=== PATIENT | female | born 1980 | race Caucasian/White ===

== ENCOUNTER 2021-03-29 12:09 | Emergency (ER) | payer OTHER ==
[~2021-03-29] VITALS: Ht 167.6 cm; Wt 77.0 kg
[2021-03-29] MEDS ORDERED: MECL-159 MT (21:18)
[2021-03-29 22:48] VITALS: BP 121/78
== END 2021-03-29 22:49 | disposition home or self-care (01) ==
LOC: ER 12:09
DX: R53.1 Weakness (principal); R51.9 Headache, unspecified; Z86.73 Personal history of transient ischemic attack (TIA), and cerebral infarction without residual deficits; Z20.822 Contact with and (suspected) exposure to COVID-19
CPT/HCPCS: 70551; 87426; 99285